=== PATIENT | male | born 2005 | race Caucasian/White ===

== ENCOUNTER 2024-08-05 17:25 | Emergency (ER) | payer SELFPAY ==
[2024-08-05 17:31] VITALS: BP 134/89
--- NOTE | 2024-08-05 17:31 | ED.GENMED ---
ED Provider Triage
-
Patient seen by provider in Triage?: Seen in Triage
Attestation: A medical screening examination has been initiated by a qualified medical provider. Based on the assessment performed at this time, it has been determined that an emergent medical condition may exist and the patient has been informed
that further medical evaluation and possible additional diagnostic testing may be needed.
HPI: 19 yo with no pmhx, (father January of [place] age 51). After drinking [employer] [employer] 2 p.m. (mountain dew caffeine soda), Was laying in bed shaking 2:30, got up, showered 3:30, on way to diner 4:15 felt lightheaded and dizzy, trouble breathing, went
to [facility] and washed face, felt heart was 'beating out of my chest.' Admits to 'freaking out' due to recent of father and having trouble breathing.
Has chronic sinus congestion took an allergy pill (Claritin) 2 p.m.
EKG: NSR HR 92
GENERAL: Alert , in no apparent distress
EYE: No visual abnormalities.
NECK: Trachea midline
ENT: No visible abnormalities.
CARDIAC: RRR
LUNGS: No acute respiratory distress
NEUROLOGICAL: Alert and oriented
SKIN: Skin intact. No visible changes.
MUSCULOSKELETAL: Moving extremities normally
PSYCH: Anxious, appropriate interaction.
This is a medical evaluation conducted in person to initiate diagnostic evaluation and provide initial therapeutics. Please see further documentation by the treating clinician.
5:50 p.m.
Pt resting states he feels 'calmer' HR 70
History of Present Illness
General
Chief Complaint: Chest Pain
History of Present Illness
History of Present Illness:
N/A
Phy Exam
Physical Exam
Physical Exam:
N/A
Scores
Heart Score for Chest Pain Patients
STEMI patient?: Not applicable
Course
Orders/Labs/Results
Orders:
Orders
08/05/24 17:26
ECG [Electrocardiogram (*1)] Urgent
Reason for Study: Chest Pain
EKG- Treatment ONCE
08/05/24 17:36
Electrocardiogram (*1) Urgent
Reason for Study: Chest Pain
EKG- Treatment ONCE
08/05/24 17:57
Complete Blood Count/With Diff Urgent
Comprehensive Metabolic Panel Urgent
Troponin I Urgent
Abnormal Lab Results
08/05/24
17:57
Absolute Monos (auto) 0.8 H 10^3/uL
(0.1-0.6)
Glucose 103 H mg/dl
(70-99)
08/05/24 17:57
08/05/24 17:57
Vital Signs
Initial and Last Documented VS:
Initial Vital Signs
Temp Pulse Resp BP Pulse Ox
99 F 96 20 134/89 100
08/05/24 17:31 08/05/24 17:31 08/05/24 17:31 08/05/24 17:31 08/05/24 17:31
Last Documented Vital Signs
Temp Pulse Resp BP Pulse Ox
99 F 96 20 134/89 100
08/05/24 17:31 08/05/24 17:31 08/05/24 17:31 08/05/24 17:31 08/05/24 17:31
*Critical Care Note
Total Time (30-74mins, 75-104mins- exclusive of procedures): Not Applicable
ED Attending Note
-
Portions of this chart may have been created with voice recognition software.� Occasional wrong word or��sound alike� substitutions may have occurred due to the inherent limitations of voice recognition software.
Discharge Plan
Departure
Patient Disposition: Against Medical Advice
Discharge Problem:
Atypical chest pain, Anxiety about health
Referrals:
UNKNOWN,NO INTERVIEW [Family Provider] -
Interventions
Interventions:
*Risk Screen - Suicide Last Done: 08/05/24 17:31
*General Assessment Last Done: 08/05/24 17:31
*Neglect/Abuse Screening Last Done: 08/05/24 17:31
*Nursing Disposition Last Done: 08/05/24 19:51
Discharge Date and Time
Discharge Date/Time: 08/05/24 19:52
Print Language: FAROESE
[2024-08-05 18:06] LABS: % Basophils 0.8 % (0-2); % Eosinophils 2.8 % (0-6); % Immature Granulocytes 0.2 % (0-0.5); % Lymphocytes 24.3 % (20.5-51.1); % Monocytes 8.8 % (1.7-9.3); % Neutrophils 63.1 % (42.2-75.2); Absolute Basophils 0.1 10^3/uL (0-0.2); Absolute Eosinophils 0.2 10^3/uL (0-0.7); Absolute Lymphocytes 2.1 10^3/uL (1.2-3.4); Absolute Monocytes 0.8 10^3/uL (0.1-0.6); Absolute Neutrophils 5.4 10^3/uL (1.4-6.5); Hematocrit 45.9 % (39.0-52.0); Hemoglobin 15.4 g/dL (13.0-18.0); Mean Corp Hgb Conc. 33.6 g/dL (33.0-37.0); Mean Corpuscular Hgb 27.4 pg (27.0-31.0); Mean Corpuscular Volume 81.7 fL (80.0-94.0); Nucleated Red Blood Cells % 0 % (-); Platelet Count 261 10^3/uL (130-400); Red Blood Cell Count 5.62 10^6/uL (4.70-6.10); Red Cell Dist. Width 12.6 % (11.5-14.5); White Blood Cell Count 8.6 10^3/uL (4.8-10.8)
[2024-08-05 18:19] LABS: ALT (SGPT) 24 U/L (0-50); AST (SGOT) 26 U/L (17-59); Albumin 4.9 g/dl (3.5-5.0); Alkaline Phosphatase 119 U/L (38-126); Blood Urea Nitrogen 14 mg/dl (9-20); Calcium 9.9 mg/dl (8.4-10.2); Carbon Dioxide 28 mmol/L (22-30); Chloride 100 mmol/L (98-107); Glucose 103 mg/dl (70-99); Potassium 4.1 mmol/L (3.5-5.1); Sodium 141 mmol/L (135-145); Total Bilirubin 0.5 mg/dl (0.2-1.3); Total Protein 7.5 g/dl (6.3-8.2); eGFR > 60.00
[2024-08-05 18:29] LABS: Troponin I < 0.012 ng/ml
--- NOTE | 2024-08-05 19:52 | EDRN ---
pt and pt mother approached registration desk asking how much longer the wait is. explained to pt and mother that it is very busy today and pt will be brought back when a room is available. pt verbalizes that he is feeling much better and would like
to go home, pt mother verbalizes that she wishes to take her son home. pt mother verbalizes that pt has anxiety and is getting more anxious sitting in the waiting room. charge nurse and dr blanco made aware, provider states that he would like the
patient to be seen by a provider based on his initial ekg. pt and mother informed of providers wishes that they stay to be evaluated. pt again verbalizes that he is feeling much better and would rather go home, pt mother verbalizes that she would
like to take her son home and will follow up with family care provider. ama paperwork explained to pt and mother, paperwork signed by patient. pt and mother walked out of the department without difficulty
== END 2024-08-05 19:52 | disposition left against medical advice (07) ==
LOC: EMR 17:25
PROVIDERS: Registered Nurse
DX: R07.89 Other chest pain (principal); Z63.4 Disappearance and death of family member; Z53.29 Procedure and treatment not carried out because of patient's decision for other reasons
CPT/HCPCS: 99284; 80053; 84484; 85025; 93005